=== PATIENT | male | born 1955 | race Caucasian/White ===

== ENCOUNTER 2019-10-18 06:04 | Day surgery (SDC) | payer OTHER, SELFPAY ==
[~2019-10-18] VITALS: Ht 167.6 cm; Wt 73.9 kg
[2019-10-18] MEDS ORDERED: fentaNYL 0.05 MG/ML VIAL ONE (07:42)
[2019-10-18] MEDS ORDERED: LIDOCAINE 2% 100 MG/5 ML UJET TP ONE (07:43)
[2019-10-18] MEDS ORDERED: fentaNYL 0.05 MG/ML VIAL IVP ONE (08:08)
== END 2019-10-18 08:50 | disposition home or self-care (01) ==
LOC: MDS 06:04 → MMU 06:05 → EDBD 08:20 → MDS 08:50
PROVIDERS: ATTEND Internal Medicine Gastroenterology
DX: Z12.11 Encounter for screening for malignant neoplasm of colon (principal); Z80.0 Family history of malignant neoplasm of digestive organs
CPT/HCPCS: 45378; J3010; U0003